=== PATIENT | female | born 1995 | race Caucasian/White ===

== ENCOUNTER 2019-01-14 01:33 | Emergency (ER) | payer OTHER ==
[~2019-01-14] VITALS: Ht 157.5 cm; Wt 50.0 kg
[2019-01-14 01:41] VITALS: Ht 157.5 cm; Wt 50.0 kg
[2019-01-14] MEDS ORDERED: IBUPROFEN 800 MG TAB PO ONE (02:30)
[2019-01-14] MEDS ORDERED: LORAZEPAM 0.5 MG TAB PO ONE (03:00)
--- NOTE | 2019-01-14 03:01 | ERD ---
ER Documentation Chief Complaint Chief Complaint awoke w/ sudden increased severity of abd/back pain r/t genetic disorder HPI This is a 23-year-old female with a history of underlying psychiatric issues, anxiety, and hereditary familial Mediterranean fever who presents to the ER for evaluation of pain in her joints. The patient is here with her family members who states the patient has been feeling anxious. She has been taking her hydroxyzine and SSRI. The patient denies any homicidal suicidal ideation. She denies any fevers chills nausea vomiting ROS All systems reviewed and are negative except as per history of present illness. Medications Home Meds No Active Prescriptions or Reported Meds Allergies Allergies: Coded Allergies: amoxicillin (Verified Allergy, Unknown, 10/12/15) PMhx/Soc Medical and Surgical Hx: pt denies Surgical Hx Hx Respiratory Disorders: Yes (ASTHMA) Hx Cardiac Disorders: No Hx Psychiatric Problems: No Hx Miscellaneous Medical Probl: Yes (familial mediteranian fever) Hx Alcohol Use: No Hx Substance Use: No Hx Tobacco Use: No Smoking Status: Never smoker Physical Exam Vitals Vital Signs Date Temp Pulse Resp B/P (MAP) Pulse Ox O2 O2 Flow FiO2 Time Delivery Rate 01/14/19 99.1 108 26 96/71 (79) 100 01:41 Physical Exam INITIAL VITAL SIGNS: Reviewed by me GENERAL: The patient is well developed and appropriate for usual state of health in no apparent distress HEENT: Pupils equal, round, and reactive to light. EOMI. There is no scleral icterus. NECK: C-spine is soft and supple, there is no meningismus. There is no cervical lymphadenopathy. LUNGS: Clear to auscultation bilaterally. There are no rales, wheezes or rhonchi. HEART: Regular rate and rhythm, no murmurs, clicks, rubs or gallops. ABDOMEN: Soft, non-tender, non-distended. There are bowel sounds in all four quadrants. No rebound or guarding. EXTREMITIES: There is no peripheral cyanosis or edema. No focal swelling or erythema. NEUROLOGICAL: The patient moves all four extremities with 5/5 strength. Cranial nerves II - XII are intact. Normal gait. Alert and oriented SKIN: There is no apparent rash or petechiae. HEME/LYMPHATIC: There is no evidence of excessive bruising or lymphedema. PSYCHIATRIC: The patient does appear to be anxious Result Diagram: 01/14/19 0217 01/14/19 0217 Results 24 hrs Laboratory Tests Test 01/14/19 02:00 01/14/19 02:17 POC Beta HCG, Qualitative NEGATIVE White Blood Count 8.6 10^3/ul Red Blood Count 4.27 10^6/ul Hemoglobin 12.1 g/dl Hematocrit 36.4 % Mean Corpuscular Volume 85.2 fl Mean Corpuscular Hemoglobin 28.3 pg Mean Corpuscular Hemoglobin Concent 33.2 g/dl Red Cell Distribution Width 12.8 % Platelet Count 156 10^3/UL Mean Platelet Volume 9.8 fl Immature Granulocytes % 0.400 % Neutrophils % 69.6 % Lymphocytes % 23.7 % Monocytes % 5.1 % Eosinophils % 0.7 % Basophils % 0.5 % Nucleated Red Blood Cells % 0.0 /100WBC Immature Granulocytes # 0.030 10^3/ul Neutrophils # 6.0 10^3/ul Lymphocytes # 2.0 10^3/ul Monocytes # 0.4 10^3/ul Eosinophils # 0.1 10^3/ul Basophils # 0.0 10^3/ul Nucleated Red Blood Cells # 0.0 10^3/ul Sodium Level 141 mmol/L Potassium Level 3.8 mmol/L Chloride Level 105 mmol/L Carbon Dioxide Level 25 mmol/L Anion Gap 11 Blood Urea Nitrogen 8 mg/dl Creatinine 0.73 mg/dl Est Glomerular Filtrat Rate mL/min > 60 mL/min Glucose Level 110 mg/dl Calcium Level 9.2 mg/dl Total Bilirubin 0.2 mg/dl Direct Bilirubin 0.00 mg/dl Indirect Bilirubin 0.2 mg/dl Aspartate Amino Transf (AST/SGOT) 24 IU/L Alanine Aminotransferase (ALT/SGPT) 16 IU/L Alkaline Phosphatase 48 IU/L Total Protein 7.3 g/dl Albumin 4.2 g/dl Globulin 3.10 g/dl Albumin/Globulin Ratio 1.35 Lipase 84 U/L Current Medications Medications Dose Sig/Kamille Start Time Status Last (Trade) Ordered Route PRN Stop Time Admin Dose Reason Admin Ibuprofen 800 mg ONCE ONCE 01/14/19 DC 01/14/19 (Motrin) PO 02:30 02:16 01/14/19 02:31 Lorazepam 0.5 mg ONCE ONCE 01/14/19 UNV (Ativan) PO 03:00 01/14/19 03:01 Procedures/MDM This 23-year-old female presents to the emergency room for evaluation of multiple complaints including joint pain, and anxiety. Patient did appear to be very anxious on my examination. She is taking hydroxyzine and Zoloft. The patient had lab work drawn which is normal. This patient's is hCG which is negative. She was given Motrin for pain and does feel somewhat better however the patient continues to be anxious. Patient was given 0.5 mg of Ativan will be discharged home with a prescription for Motrin. She was advised she can follow- up with her psychiatrist and she states that she is has the ability follow-up in 48 hours. Departure Diagnosis: Primary Impression: Abdominal pain Additional Impression: Anxiety Condition: Stable DOMINIQUE DUKE DO Jan 14, 2019 03:01
[2019-01-14] MEDS ORDERED: IBUP-1544 PO (03:09)
[2019-01-14 03:45] VITALS: BP 110/65; PULSE 98; RESP 16
== END 2019-01-14 03:45 | disposition home or self-care (01) ==
LOC: E/R 01:33
DX: R10.9 Unspecified abdominal pain (principal); F41.9 Anxiety disorder, unspecified; J45.909 Unspecified asthma, uncomplicated
CPT/HCPCS: 80053; 81001; 81025; 83690; 85025; 99283